=== PATIENT | male | born 1940 | race Caucasian/White ===

== ENCOUNTER 2023-06-20 21:45 | Inpatient (IN) | payer MEDICARE, OTHER ==
[2023-06-20 22:37] LABS: Hematocrit 31.2 % (38.8-50.0); Hemoglobin 9.6 g/dL (13.5-17.5); Mean Corpuscular HGB CONC 30.8 g/dL (32.0-36.0); Mean Corpuscular Hemoglobin 27.7 pg (27.0-33.0); Mean Corpuscular Volume 89.9 fl (81.2-95.1); Mean Platelet Volume 10.5 fl (7.4-10.4); Platelet Count 152 10x3/uL (150-450); RBC Distribution Width 17.8 % (11.5-14.5); Red Blood Cell (RBC) Count 3.47 10x6/uL (4.32-5.72); White Blood Cell (WBC) Count 25.3 10x3/uL (3.5-10.5)
[2023-06-20 22:38] LABS: MDiff Complete? YES
[2023-06-20 22:50] LABS: ALT (SGPT) 8 U/L (8-55); AST (SGOT) 13 U/L (5-34); Albumin 1.7 g/dL (3.4-4.8); Alkaline Phosphatase 156 U/L (40-110); Anion Gap 13 mmol/L (10-20); BUN (Urea Nitrogen) 26 mg/dL (8.4-25.7); Bilirubin, Total 1.4 mg/dL (0.2-1.2); Calc. Creatinine Clearance 0 mL/min (70-130); Calcium 7.4 mg/dL (7.8-10.44); Carbon Dioxide 26 mmol/L (23-31); Chloride 102 mmol/L (98-107); Estimated GFR 20; Globulin 3.7 g/dL (2.4-3.5); Glucose 95 mg/dL (83-110); Potassium 2.9 mmol/L (3.5-5.1); Protein, Total 5.4 g/dL (5.8-8.1); Sodium 138 mmol/L (136-145)
[2023-06-20 23:26] LABS: Band 8 % (5-11); Lymphocytes 5 % (21-51); Monocytes 4 % (0-10); Neutrophil 83 % (42-75)
[2023-06-20] MEDS ORDERED: Vancomycin 1.5 GRAM/300 ML BAG 1.5 GM in Premix 1 BAG IVPB ONE (23:30)
[2023-06-20 23:32] LABS: Hypochromia SLIGHT = 6-15 cells (100X) (0-5/hpf); Macrocytosis SLIGHT = 6-15 cells (100X) (0-5/hpf); Microcytosis SLIGHT = 6-15 cells (100X) (0-5/hpf)
[2023-06-20 23:33] LABS: Anisocytosis SLIGHT = 6-15 cells (100X) (0-5/hpf); Platelet Adequacy Comment Appears Adequate; Polychromasia SLIGHT = 2-3 cells (100X) (0-2/hpf)
[2023-06-21] MEDS ORDERED: Potassium Chloride 20 MEQ TAB ONE (01:37)
[2023-06-21] MEDS ORDERED: Triple Antibiotic Oint 1 GM Packet ONE (01:47)
[2023-06-21] MEDS ORDERED: Communication Order-Pharmacy FS ONE (02:27)
[2023-06-21] MEDS ORDERED: Senokot S 8.6-50 MG TAB PO PRN (02:37)
[2023-06-21] MEDS ORDERED: Acetaminophen 325 MG TAB PO PRN (02:37)
[2023-06-21] MEDS ORDERED: HYDROcodone/Acetaminophen 5/325 mg Tablet PO PRN (02:37)
[2023-06-21] MEDS ORDERED: Glucagon 1 MG/ML KIT IM PRN (02:44)
[2023-06-21] MEDS ORDERED: Dextrose 5% in Water 1,000 ML IV PRN (02:44)
[2023-06-21] MEDS ORDERED: HumaLOG 300 UNITS/3 ML VIAL SC PRN (02:44)
[2023-06-21 02:45] VITALS: BMI 24.6
[2023-06-21] MEDS ORDERED: Vancomycin Diaylsis Sliding Scale (Wt 71-99) FS SCH (03:00)
[2023-06-21] MEDS ORDERED: Cefepime 1 GM in Sodium Chloride 0.9% 100 ML IVPB SCH (03:00)
[2023-06-21] MEDS: Sodium Chloride 0.9% 1,000 ML IV SCH ×2 (03:27→16:07)
[2023-06-21] MEDS: Levothyroxine Sodium 75 MCG TAB PO SCH (05:42)
[2023-06-21 06:31] LABS: #Monocytes 1.7 10x3/uL (0.0-1.1); %Basophils 0.1 % (0.0-2.0); %Lymphocytes 4.6 % (18.0-47.0); %Monocytes 7.1 % (0.0-10.0); %Neutrophils 87.3 % (40.0-75.0); Hematocrit 27.6 % (38.8-50.0); Hemoglobin 8.5 g/dL (13.5-17.5); Mean Corpuscular HGB CONC 30.8 g/dL (32.0-36.0); Mean Corpuscular Hemoglobin 28.2 pg (27.0-33.0); Mean Corpuscular Volume 91.7 fl (81.2-95.1); Mean Platelet Volume 10.6 fl (7.4-10.4); Platelet Count 135 10x3/uL (150-450); RBC Distribution Width 17.5 % (11.5-14.5); Red Blood Cell (RBC) Count 3.01 10x6/uL (4.32-5.72); White Blood Cell (WBC) Count 24.1 10x3/uL (3.5-10.5)
[2023-06-21 07:23] LABS: Chloride 109 mmol/L (98-107); Sodium 139 mmol/L (136-145)
[2023-06-21 07:27] LABS: Anion Gap 12 mmol/L (10-20); BUN (Urea Nitrogen) 24 mg/dL (8.4-25.7); Calc. Creatinine Clearance 27 mL/min (70-130); Calcium 6.6 mg/dL (7.8-10.44); Carbon Dioxide 21 mmol/L (23-31); Estimated GFR 24; Glucose 119 mg/dL (83-110); Magnesium 1.3 mg/dL (1.6-2.6); Phosphorus 3.1 mg/dL (2.3-4.7)
[2023-06-21] MEDS ORDERED: Calcium Gluc 4.6 MEQ/10 ML (100 MG/ML) SLOW IVP ONE (07:37)
[2023-06-21] MEDS ORDERED: Magnesium 2 GM/50 ML(in water) 2 GM in Premix 1 BAG IVPB SCH (08:00)
[2023-06-21] MEDS ORDERED: Pancrelipase DR 12,000 1 CAP PO PRN (08:00)
[2023-06-21] MEDS ORDERED: Potassium Chloride 20 MEQ TAB PO SCH (08:00)
[2023-06-21] MEDS: CO Q-10 CAPSULE 50 MG PO SCH (08:43)
[2023-06-21] MEDS: Magnesium Oxide 400 MG TAB PO SCH ×2 (08:43→17:44)
[2023-06-21] MEDS: Carvedilol 6.25 MG TAB PO SCH ×2 (08:44→17:44)
[2023-06-21] MEDS: Apixaban 2.5 MG TAB PO SCH ×2 (08:44→21:03)
[2023-06-21] MEDS: Pancrelipase DR 12,000 1 CAP PO SCH ×3 (08:44→17:45)
[2023-06-21] MEDS: Aspirin 81 mg Enteric Coated Tablet PO SCH (08:44)
[2023-06-21] MEDS: Ferrous Sulfate 325 MG TAB PO SCH (08:44)
[2023-06-21] MEDS: HumaLOG 300 UNITS/3 ML VIAL SC SCH ×3 (08:46→17:44)
[2023-06-21] MEDS ORDERED: Lantus 1000 UNITS/10 ML VIAL SC SCH (09:00)
[2023-06-21 09:20] LABS: HBSAg Index 0.24 S/CO (0-0.99); Hep B Surf Ag Non-Reactive S/CO (NonReactive)
[2023-06-21 12:23] LABS: Bilirubin Neg (Negative); Blood, Urine 250 (Negative); Glucose, Urine (Dipstick) Normal (Negative); Ketone, Urine Negative (Negative); Leukocyte 500 (Negative); Nitrite Negative (Negative); Protein, Urine (Dipstick) 500 mg/dl (Neg-Trace); Urobilinogen Normal mg/dL (Less than 2); pH, Urine 6.5 (5.0-9.0)
[2023-06-21 12:24] LABS: Clarity Cloudy (Clear)
[2023-06-21 12:30] LABS: Bacteria/HPF 1+ HPF (None Seen); Squamous Epithelial 0-3 HPF (0-3); WBC/HPF Greater Than 50 HPF (0-3)
[2023-06-21] MEDS ORDERED: EPOETIN ALFA-EPBX (ESRD) 4,000 UNITS/ML VIAL SC SCH (13:00)
[2023-06-21 14:11] LABS: Uric Acid 5.2 mg/dL (3.5-7.2)
[2023-06-21 14:34] LABS: Anion Gap 9 mmol/L (10-20); BUN (Urea Nitrogen) 21 mg/dL (8.4-25.7); Calc. Creatinine Clearance 35 mL/min (70-130); Calcium 5.1 mg/dL (7.8-10.44); Carbon Dioxide 18 mmol/L (23-31); Chloride 117 mmol/L (98-107); Estimated GFR 34; Glucose 70 mg/dL (83-110); Magnesium 1.4 mg/dL (1.6-2.6); Potassium 2.6 mmol/L (3.5-5.1); Sodium 141 mmol/L (136-145)
[2023-06-21] MEDS: Magnesium 2 GM/50 ML(in water) 2 GM in Premix 1 BAG IVPB SCH ×2 (15:57→17:47)
[2023-06-21] MEDS: Potassium Chloride 20 MEQ in Premix 1 BAG IVPB SCH ×2 (15:57→20:07)
[2023-06-21] MEDS ORDERED: Calcium Gluc 4.6 MEQ/10 ML (100 MG/ML) SLOW IVP SCH (16:00)
[2023-06-21] MEDS ORDERED: Vancomycin HCl 750 MG in Sodium Chloride 0.9% 250 ML 250 ML IVPB SCH (17:00)
[2023-06-21 20:04] LABS: HBSAB Concentration Less than 8.00 mIU/mL; Hep B Surf AB Non-Reactive (NonReactive)
[2023-06-21] MEDS: Albumin 25% 25 GM/100 ML BOT IVPB SCH ×2 (20:06→23:41)
[2023-06-21] MEDS: Dextrose 50% Abboject 50 ML SYRINGE SLOW IVP PRN (20:51)
[2023-06-21] MEDS: Atorvastatin Calcium 20 MG TAB PO SCH (21:00)
[2023-06-21] MEDS ORDERED: Vancomycin HCl 500 MG in Sodium Chloride 0.9% 250 ML 250 ML IVPB SCH (21:00)
[2023-06-21] MEDS: Folic Acid 1 MG TAB PO SCH (21:03)
[2023-06-21] MEDS ORDERED: Atropine Sulfate 1 mg/10 ml Syringe ONE (21:20)
[2023-06-21] MEDS ORDERED: Atropine Sulfate 1 mg/10 ml Syringe IVP SCH (21:30)
[2023-06-21] MEDS: Cefepime 0.5 GM in Sodium Chloride 0.9% 100 ML IVPB SCH (21:37)
[2023-06-21 22:01] LABS: Troponin I 0.011 ng/mL (< 0.028)
[2023-06-21 22:48] LABS: Anion Gap 13 mmol/L (10-20); BUN (Urea Nitrogen) 29 mg/dL (8.4-25.7); Calc. Creatinine Clearance 21 mL/min (70-130); Calcium 7.5 mg/dL (7.8-10.44); Carbon Dioxide 22 mmol/L (23-31); Chloride 105 mmol/L (98-107); Estimated GFR 18; Glucose 98 mg/dL (83-110); Magnesium 2.7 mg/dL (1.6-2.6); Potassium 4.7 mmol/L (3.5-5.1); Sodium 135 mmol/L (136-145)
[2023-06-22] MEDS: Dextrose 50% Abboject 50 ML SYRINGE SLOW IVP PRN (01:48)
[2023-06-22] MEDS ORDERED: Cefepime 0.5 GM in Sodium Chloride 0.9% 100 ML IVPB SCH (03:00)
[2023-06-22] MEDS: Levothyroxine Sodium 75 MCG TAB PO SCH (05:16)
[2023-06-22] MEDS: Albumin 25% 25 GM/100 ML BOT IVPB SCH ×2 (05:16→12:08)
[2023-06-22] MEDS: Ferrous Sulfate 325 MG TAB PO SCH (07:58)
[2023-06-22] MEDS: Aspirin 81 mg Enteric Coated Tablet PO SCH (07:58)
[2023-06-22] MEDS: CO Q-10 CAPSULE 50 MG PO SCH (07:58)
[2023-06-22] MEDS: Magnesium Oxide 400 MG TAB PO SCH ×2 (07:58→22:09)
[2023-06-22] MEDS: Pancrelipase DR 12,000 1 CAP PO SCH ×3 (07:58→22:09)
[2023-06-22 09:01] LABS: ALT (SGPT) 8 U/L (8-55); AST (SGOT) 10 U/L (5-34); Albumin 5.9 g/dL (3.4-4.8); Alkaline Phosphatase 117 U/L (40-110); Anion Gap 26 mmol/L (10-20); BUN (Urea Nitrogen) 27 mg/dL (8.4-25.7); Calc. Creatinine Clearance 23 mL/min (70-130); Calcium 6.8 mg/dL (7.8-10.44); Carbon Dioxide 18 mmol/L (23-31); Chloride 99 mmol/L (98-107); Estimated GFR 20; Globulin 3.1 g/dL (2.4-3.5); Glucose 91 mg/dL (83-110); Potassium 3.7 mmol/L (3.5-5.1); Sodium 139 mmol/L (136-145)
[2023-06-22] MEDS ORDERED: Vancomycin 1 GM in Sodium Chloride 0.9% 250 ML 250 ML IVPB SCH ×2 (17:00→21:30)
[2023-06-22] MEDS: Atorvastatin Calcium 20 MG TAB PO SCH (21:57)
[2023-06-22] MEDS: Cefepime 0.5 GM in Sodium Chloride 0.9% 100 ML IVPB SCH (21:57)
[2023-06-22] MEDS: Folic Acid 1 MG TAB PO SCH (21:57)
[2023-06-23 04:45] LABS: #Monocytes 1.7 10x3/uL (0.0-1.1); #Neutrophils 20.6 10x3/uL (1.5-8.4); %Basophils 0.1 % (0.0-2.0); %Eosinophils 0.1 % (0.0-6.0); %Lymphocytes 5.6 % (18.0-47.0); %Neutrophils 86.4 % (40.0-75.0); Hematocrit 28.6 % (38.8-50.0); Hemoglobin 8.7 g/dL (13.5-17.5); Mean Corpuscular HGB CONC 30.4 g/dL (32.0-36.0); Mean Corpuscular Hemoglobin 27.6 pg (27.0-33.0); Mean Corpuscular Volume 90.8 fl (81.2-95.1); Mean Platelet Volume 10.9 fl (7.4-10.4); Platelet Count 123 10x3/uL (150-450); RBC Distribution Width 17.8 % (11.5-14.5); Red Blood Cell (RBC) Count 3.15 10x6/uL (4.32-5.72); White Blood Cell (WBC) Count 23.9 10x3/uL (3.5-10.5)
[2023-06-23 05:38] LABS: Anion Gap 13 mmol/L (10-20); BUN (Urea Nitrogen) 18 mg/dL (8.4-25.7); Calc. Creatinine Clearance 31 mL/min (70-130); Calcium 7.8 mg/dL (7.8-10.44); Carbon Dioxide 25 mmol/L (23-31); Chloride 103 mmol/L (98-107); Estimated GFR 29; Potassium 3.5 mmol/L (3.5-5.1); Sodium 137 mmol/L (136-145)
[2023-06-23 05:40] LABS: Glucose 53 mg/dL (83-110)
[2023-06-23] MEDS: Dextrose 50% Abboject 50 ML SYRINGE SLOW IVP PRN (05:44)
[2023-06-23] MEDS: Levothyroxine Sodium 75 MCG TAB PO SCH (05:54)
[2023-06-23 07:40] LABS: Vancomycin, Random 19.8 ug/mL (See Comment)
[2023-06-23] MEDS: Pancrelipase DR 12,000 1 CAP PO SCH ×3 (11:09→16:45)
[2023-06-23] MEDS: CO Q-10 CAPSULE 50 MG PO SCH (11:09)
[2023-06-23] MEDS: Ferrous Sulfate 325 MG TAB PO SCH (11:10)
[2023-06-23] MEDS: Magnesium Oxide 400 MG TAB PO SCH ×2 (11:10→16:44)
[2023-06-23] MEDS: Aspirin 81 mg Enteric Coated Tablet PO SCH (11:10)
[2023-06-23] MEDS: Cefepime 0.5 GM in Sodium Chloride 0.9% 100 ML IVPB SCH (16:46)
[2023-06-23] MEDS ORDERED: Vancomycin HCl 750 MG in Sodium Chloride 0.9% 250 ML 250 ML IVPB SCH (17:00)
[2023-06-23] MEDS: Atorvastatin Calcium 20 MG TAB PO SCH (22:23)
[2023-06-23] MEDS: Folic Acid 1 MG TAB PO SCH (22:23)
[2023-06-24] MEDS ORDERED: diphenhydrAMINE 25 MG CAP PO SCH (01:15)
[2023-06-24 05:35] LABS: #Monocytes 1.2 10x3/uL (0.0-1.1); #Neutrophils 15.7 10x3/uL (1.5-8.4); %Basophils 0.1 % (0.0-2.0); %Eosinophils 0.1 % (0.0-6.0); %Lymphocytes 5.7 % (18.0-47.0); %Monocytes 6.5 % (0.0-10.0); %Neutrophils 86.9 % (40.0-75.0); Hematocrit 31.7 % (38.8-50.0); Hemoglobin 9.6 g/dL (13.5-17.5); Mean Corpuscular HGB CONC 30.3 g/dL (32.0-36.0); Mean Corpuscular Hemoglobin 27.3 pg (27.0-33.0); Mean Corpuscular Volume 90.1 fl (81.2-95.1); Mean Platelet Volume 10.6 fl (7.4-10.4); Platelet Count 110 10x3/uL (150-450); RBC Distribution Width 18.1 % (11.5-14.5); Red Blood Cell (RBC) Count 3.52 10x6/uL (4.32-5.72); White Blood Cell (WBC) Count 18.1 10x3/uL (3.5-10.5)
[2023-06-24 05:37] LABS: Anion Gap 13 mmol/L (10-20); BUN (Urea Nitrogen) 14 mg/dL (8.4-25.7); Calc. Creatinine Clearance 37 mL/min (70-130); Calcium 7.8 mg/dL (7.8-10.44); Carbon Dioxide 24 mmol/L (23-31); Chloride 103 mmol/L (98-107); Estimated GFR 35; Glucose 70 mg/dL (83-110); Potassium 3.6 mmol/L (3.5-5.1); Sodium 136 mmol/L (136-145)
[2023-06-24] MEDS: Dextrose 50% Abboject 50 ML SYRINGE SLOW IVP PRN (06:02)
[2023-06-24] MEDS: Levothyroxine Sodium 75 MCG TAB PO SCH (06:02)
[2023-06-24 06:10] LABS: Platelet Adequacy Comment Appears Decreased
[2023-06-24 06:11] LABS: RBC Morph Comment Within Normal Limits
[2023-06-24] MEDS: CO Q-10 CAPSULE 50 MG PO SCH (09:46)
[2023-06-24] MEDS: Aspirin 81 mg Enteric Coated Tablet PO SCH (09:47)
[2023-06-24] MEDS: Magnesium Oxide 400 MG TAB PO SCH ×2 (09:47→17:21)
[2023-06-24] MEDS: Pancrelipase DR 12,000 1 CAP PO SCH ×3 (09:47→17:20)
[2023-06-24] MEDS: Ferrous Sulfate 325 MG TAB PO SCH (09:47)
[2023-06-24] MEDS: Cefepime 0.5 GM in Sodium Chloride 0.9% 100 ML IVPB SCH (17:21)
[2023-06-24 18:50] VITALS: BP 120/56; TEMP 97.4
== END 2023-06-24 22:07 | disposition short-term general hospital (02) | DRG 871 ==
LOC: CSHERS 21:45 → CSHTELE 06-21 01:09
PROVIDERS: ADMIT Family Medicine; ATTEND Hospitalist
PROC: 30233J1 Transfusion of Nonautologous Serum Albumin into Peripheral Vein, Percutaneous Approach (ICD-10-PCS; 2023-06-21)
PROC: 5A1D70Z Performance of Urinary Filtration, Intermittent, Less than 6 Hours Per Day (ICD-10-PCS; 2023-06-21)
PROC: 06HY33Z Insertion of Infusion Device into Lower Vein, Percutaneous Approach (ICD-10-PCS; principal; 2023-06-22)
PROC: 5A1D70Z Performance of Urinary Filtration, Intermittent, Less than 6 Hours Per Day (ICD-10-PCS; 2023-06-22)
PROC: 5A1D70Z Performance of Urinary Filtration, Intermittent, Less than 6 Hours Per Day (ICD-10-PCS; 2023-06-23)
PROC: B51W1ZZ Fluoroscopy of Dialysis Shunt/Fistula using Low Osmolar Contrast (ICD-10-PCS; 2023-06-23)
DX: A41.9 Sepsis, unspecified organism (principal); N18.6 End stage renal disease; T82.7XXA Infection and inflammatory reaction due to other cardiac and vascular devices, implants and grafts, initial encounter; I50.32 Chronic diastolic (congestive) heart failure; I13.2 Hypertensive heart and chronic kidney disease with heart failure and with stage 5 chronic kidney disease, or end stage renal disease; L03.113 Cellulitis of right upper limb; E44.0 Moderate protein-calorie malnutrition; I48.11 Longstanding persistent atrial fibrillation; T82.868A Thrombosis due to vascular prosthetic devices, implants and grafts, initial encounter; R65.20 Severe sepsis without septic shock; E11.22 Type 2 diabetes mellitus with diabetic chronic kidney disease; E03.9 Hypothyroidism, unspecified; I25.10 Atherosclerotic heart disease of native coronary artery without angina pectoris; E78.5 Hyperlipidemia, unspecified; D63.1 Anemia in chronic kidney disease; E87.6 Hypokalemia; L89.151 Pressure ulcer of sacral region, stage 1; N40.0 Benign prostatic hyperplasia without lower urinary tract symptoms; D50.9 Iron deficiency anemia, unspecified; D69.6 Thrombocytopenia, unspecified; Z95.1 Presence of aortocoronary bypass graft; Z88.8 Allergy status to other drugs, medicaments and biological substances; Z82.49 Family history of ischemic heart disease and other diseases of the circulatory system; Z83.3 Family history of diabetes mellitus; Z68.24 Body mass index [BMI] 24.0-24.9, adult; Z79.899 Other long term (current) drug therapy; Z79.82 Long term (current) use of aspirin; Z79.4 Long term (current) use of insulin; Z98.890 Other specified postprocedural states; Z99.2 Dependence on renal dialysis; I25.2 Old myocardial infarction; Z86.16 Personal history of COVID-19
CPT/HCPCS: 36415; 36416; 71045; 80048; 80053; 80202; 81001; 82040; 82533; 83605; 83735; 84100; 84443; 84484; 84550; 85025; 86706; 87040; 87077; 87149; 87340; 90935; 93005; 93010; 97139; G0257; J0461; J0612; J0692; J1815; J3370; J3475; J3480; J3490; J7050; J7999; P9047; Q5105